=== PATIENT | female | born 1955 ===

== ENCOUNTER 2017-05-21 11:37 | Emergency (ER) | payer MEDICAID, OTHER ==
[2017-05-21 11:57] VITALS: BP 158/79; PULSE 76; RESP 18; TEMP 98.2; O2SAT 99
--- NOTE | 2017-05-21 14:31 | C.PDOC ---
History Of Present Illness 61 year old female with PMHx of arthritis presents to the ED c/o chronic left knee pain. Patient reports she is not able to bend or move her knee due to pain. Patient states she has taken Advil 200 mg PO with no relief to her symptoms. Patient recently got insurance and has an appointment with Dr. Padilla on the . Patient denies injury, fall, trauma, fever, chills, nausea, vomit, weakness, numbness. Time Seen by Provider: 05/21/17 14:00 Chief Complaint (Nursing): Lower Extremity Problem/Injury History Per: Patient History/Exam Limitations: no limitations Onset/Duration Of Symptoms: Days, Persistent Current Symptoms Are (Timing): Still Present Recent travel outside of the [place]: No Additional History Per: Patient - Knee Description Of Injury: Other Currently Unable To: Bend Or Move Alleviating Factor(s): OTC Pain Medication Past Medical History Reviewed: Historical Data, Nursing Documentation, Vital Signs Vital Signs: Last Vital Signs Temp 98.2 F 05/21/17 11:55 Pulse 76 05/21/17 11:55 Resp 18 05/21/17 11:55 BP 158/79 H 05/21/17 11:55 Pulse Ox 99 05/21/17 14:33 - Medical History PMH: Arthritis Surgical History: No Surg Hx - [facility] Procedures APPLICATION OF SPLINT (03/06/14) Family History: States: Unknown Family Hx - Social History Hx Tobacco Use: Yes Hx Alcohol Use: No (Former) Hx Substance Use: No - Immunization History Hx Tetanus Toxoid Vaccination: No Hx Influenza Vaccination: No Hx Pneumococcal Vaccination: No Review Of Systems Constitutional: Negative for: Fever, Chills Cardiovascular: Negative for: Chest Pain Respiratory: Negative for: Shortness of Breath Gastrointestinal: Negative for: Abdominal Pain Musculoskeletal: Positive for: Leg Pain Skin: Negative for: Rash Neurological: Negative for: Weakness, Numbness Physical Exam - Physical Exam Appears: Non-toxic, No Acute Distress Skin: Normal Color, Warm, Dry Head: Atraumatic, Normacephalic Eye(s): bilateral: Normal Inspection Nose: No Discharge Oral Mucosa: Moist Extremity: Normal ROM, Tenderness (medial knee), Capillary Refill (< 2 seconds) , No Swelling Pulses: Left Dorsalis Pedis: Normal, Right Dorsalis Pedis: Normal Neurological/Psych: Oriented x3, Normal Speech, Normal Motor, Normal Sensation Gait: Steady ED Course And Treatment O2 Sat by Pulse Oximetry: 99 (On RA) Pulse Ox Interpretation: Normal Medical Decision Making Medical Decision Making: Impression: left knee pain Plan: * Motrin 600 mg PO Disposition Counseled Patient/Family Regarding: Diagnosis, Need For Followup - Disposition Referrals: [facility] [Outside] Lorena Banda MD [Staff Provider] - Disposition: HOME/ ROUTINE Disposition Time: 15:32 Condition: GOOD Additional Instructions: Follow up in medical clinic and with orthopedist . Wear knee brace for comfort. Ibuprofen 600 mg by mouth for pain if needed every 6 hours. Forms: Gen Discharge Inst Guatemalan, [employer] (Guatemalan) - Clinical Impression Clinical Impression: Left knee pain - PA / [employer]CHNICIAN / Resident Statement MD/DO has reviewed & agrees with the documentation as recorded. - Scribe Statement The provider has reviewed the documentation as recorded by the Scribe Antonio Correia All medical record entries made by the Scribe were at my direction and personally dictated by me. I have reviewed the chart and agree that the record accurately reflects my personal performance of the history, physical exam, medical decision making, and the department course for this patient. I have also personally directed, reviewed, and agree with the discharge instructions and disposition.
== END 2017-05-21 15:00 | disposition home or self-care (01) ==
LOC: C.ER 11:37
DX: M25.562 Pain in left knee (principal)